=== PATIENT | female | born 1985 | race Caucasian/White ===

== ENCOUNTER 2016-10-23 15:55 | Emergency (ER) | payer OTHER ==
[~2016-10-23] VITALS: Ht 170.2 cm; Wt 138.6 kg
[~2016-10-23 15:55] MED LIST: CHOL100027 PO; CLX/20 PO; LISI-729 PO; METF-384 PO
[2016-10-23 15:58] VITALS: TEMP 36.4; Ht 170.2 cm; Wt 138.6 kg
--- NOTE | 2016-10-23 16:53 | DIAGNOSTIC IMAGING REPORT ---
CT SCAN OF THE BRAIN WITHOUT IV CONTRAST CLINICAL HISTORY: Head injury. COMPARISON STUDY: No priors. TECHNIQUE: Unenhanced axial CT scan of the brain is performed from the vertex to the skull base. Automated dose control exposure was utilized. CT DOSE: 537.48 mGy.cm FINDINGS: Brain parenchyma: The brain parenchyma is normal in appearance. There is no hemorrhage, mass effect, or evidence of acute territorial ischemia by CT criteria. Borrego-white matter is preserved. No extra-axial fluid collection is seen. Ventricles, sulci, cisterns: Normal in configuration. Intracranial vasculature: The visualized intracranial vasculature at the skull base is normal in appearance. Calvarium: There is no depressed calvarial fracture. Sinuses and mastoids: The visualized paranasal sinuses are clear. The mastoid air cells are well pneumatized. Orbits: The bony orbits are grossly intact. IMPRESSION: No acute intracranial abnormality. Electronically signed by: Gurvinder Wells M.D. 10/23/2016 4:52 PM Dictated Date/Time: 10/23/2016 4:50 PM
[2016-10-23] MEDS ORDERED: ONDA4TAB10 SL (17:15)
--- NOTE | 2016-10-23 17:15 | EMERGENCY ROOM VISIT NOTE ---
History First contact with patient: 16:02 Chief Complaint: HEADACHE Stated Complaint: HEADACHE,DIZZINESS,NAUSEA History of Present Illness The patient is a 31 year old female who presents to the Emergency Room with complaints of headache after head injury. The patient states that yesterday her toddler was on her bed and fell and the child's head hit the patient's left frontal region. The patient states that she lost consciousness for a few seconds. Since that time she has a headache which she rates it a 7 out of 10. She admits to feeling off balance with head movement. She denies any visual changes. The patient also admits to feeling slightly nauseated but no vomiting. The patient took Tylenol without any relief of the headache. The patient drove herself to the emergency room. Review of Systems 6 system review was performed and was negative unless stated otherwise in history of present illness. Past Medical/Surgical History Medical Problems: (1) Gallstone pancreatitis (2) Pancreatitis Surgical Problems: (1) S/P cholecystectomy Family History Diabetes mellitus Hypertension Social History Smoking Status: Never Smoker Alcohol Use: none Drug Use: none Marital Status: Housing Status: lives with family Current/Historical Medications Scheduled Cholecalciferol (Vitamin D 1000 Unit), 1,000 INTER.UNIT PO DAILY Citalopram (Citalopram Hydrobromide), 20 MG PO DAILY Lisinopril (Zestril), 5 MG PO DAILY Metformin Hcl (Glucophage), 1,000 MG PO BID Allergies Coded Allergies: POLLEN (Verified Allergy, Unknown, ITCHY EYES, RUNNY NOSE, 10/23/16) Physical Exam Vital Signs Date Time Temp Pulse Resp B/P Pulse Ox O2 Delivery O2 Flow Rate FiO2 10/23/16 15:58 36.4 76 20 166/102 98 Room Air Physical Exam GENERAL: 31-year-old white female appears in no acute distress. MENTAL Status: Alert and oriented 3. HEAD: Atraumatic, nontender to palpation. EYES: PERRLA. EOMs intact. EARS: Canals clear. TMs without fluid level noted. NECK: Supple, no lymphadenopathy noted. No carotid bruits noted. LUNGS: Clear auscultation without wheezes rales or rhonchi. CARDIAC: Regular rate and rhythm without murmur. Pulses is full and equal throughout. NEURO:Cranial nerves two through 12 intact. Cerebellar function intact with [id number]. Fine motor intact with alternating finger motions. Medical Decision & Procedures ER Provider Diagnostic Interpretation: CT SCAN OF THE BRAIN WITHOUT IV CONTRAST CLINICAL HISTORY: Head injury. COMPARISON STUDY: No priors. TECHNIQUE: Unenhanced axial CT scan of the brain is performed from the vertex to the skull base. Automated dose control exposure was utilized. CT DOSE: 537.48 mGy.cm FINDINGS: Brain parenchyma: The brain parenchyma is normal in appearance. There is no hemorrhage, mass effect, or evidence of acute territorial ischemia by CT criteria. Borrego-white matter is preserved. No extra-axial fluid collection is seen. Ventricles, sulci, cisterns: Normal in configuration. Intracranial vasculature: The visualized intracranial vasculature at the skull base is normal in appearance. Calvarium: There is no depressed calvarial fracture. Sinuses and mastoids: The visualized paranasal sinuses are clear. The mastoid air cells are well pneumatized. Orbits: The bony orbits are grossly intact. IMPRESSION: No acute intracranial abnormality. Electronically signed by: Gurvinder Wells M.D. 10/23/2016 4:52 PM ED Course The patient was evaluated. Urine dip was negative for . CT of the head was ordered and interpreted by the radiologist as above without any acute findings. The patient was informed of the findings and discharged home in stable condition. Medical Decision Differential includes: Acute intracranial bleed, trauma, meningitis, encephalitis, increased intracranial pressure, mass or mass effect, facial or dental infection, temporal arteritis, CVA, TIA, acute hypertensive emergency, sinusitis, carbon monoxide exposure. Impression Primary Impression: Head injury Departure Information Dispostion Home / Self-Care Condition GOOD Prescriptions Ondasetron Odt (ZOFRAN ODT) 4 Mg Tab 4 MG SL Q6H for Nausea, #6 TAB Prov: Catie Dias PA-C 10/23/16 Referrals Bibi Oropeza PA-C (PCP) Forms HOME CARE DOCUMENTATION FORM, IMPORTANT VISIT INFORMATION Patient Instructions ED Head Injury Closed, [facility] Additional Instructions Read head injury handout instructions. Any problems return to ER. Recommend Tylenol and/or ibuprofen every 6 hours as needed for headache. Take Zofran as needed for nausea. Follow-up with your family physician on Thursday or Thursday for reevaluation. If symptoms worsen in the interim, return to ER. Problem Qualifiers Primary Impression: Head injury Encounter type: initial encounter Qualified Codes: S09.90XA - Unspecified injury of head, initial encounter
[2016-10-23] MEDS ORDERED: ACETAMINOPHEN 500 MG TAB PO STA (17:23)
[2016-10-23 17:30] VITALS: BP 138/85; PULSE 89; O2SAT 95
== END 2016-10-23 17:31 | disposition home or self-care (01) ==
LOC: C.EDB 15:56 → C.EDD 17:31
DX: S09.90XA Unspecified injury of head, initial encounter (principal); W06.XXXA Fall from bed, initial encounter; K85.10 Biliary acute pancreatitis without necrosis or infection; Z90.49 Acquired absence of other specified parts of digestive tract; Z79.84 Long term (current) use of oral hypoglycemic drugs; Z79.899 Other long term (current) drug therapy; Z91.09 Other allergy status, other than to drugs and biological substances; Z83.3 Family history of diabetes mellitus; Z82.49 Family history of ischemic heart disease and other diseases of the circulatory system

== ENCOUNTER 2017-03-06 13:37 | Emergency (ER) | payer OTHER ==
[~2017-03-06] VITALS: Ht 167.6 cm; Wt 139.5 kg
[~2017-03-06 13:37] MED LIST changes: +ONDA4TAB10 SL
[2017-03-06 13:47] VITALS: TEMP 37.5; Ht 167.6 cm; Wt 139.5 kg
[2017-03-06] MEDS ORDERED: OXYCODONE HCL IR 5 MG TAB (IMMEDIATE RELEASE) PO STA (14:27)
[2017-03-06] MEDS ORDERED: NAPR-1169 PO (15:10)
[2017-03-06] MEDS ORDERED: CLX40 PO (15:10)
[2017-03-06] MEDS ORDERED: PRED10TA PO (15:10)
--- NOTE | 2017-03-06 15:18 | DIAGNOSTIC IMAGING REPORT ---
LUMBAR SPINE CT CT DOSE: 2116.22 mGy.cm HISTORY: Low back pain with R radiculitis TECHNIQUE: Multiaxial CT images of the lumbar spine were performed and reformatted in the sagittal and coronal plane without the use of contrast. COMPARISON: None. FINDINGS: No fractures. No subluxation. Paraspinal soft tissues are unremarkable. Minimal dextroscoliosis which could be positional. The sacrum is intact. This spaces are relatively preserved. Small partially calcified focal central disc protrusions at L2-L3 and L3-L4. These result in minimal central canal narrowing. No significant neural foraminal narrowing. There may also be a right central/paracentral focal disc protrusion at L5-S1. This may compress the transiting right S1 nerve root. However, this is now well-visualized by CT technique. IMPRESSION: 1. No fractures or subluxation within the lumbar spine. 2. Small partially calcified focal central disc protrusions at L2-L3 and L3-L4. 3. Possible central/right paracentral focal disc protrusion at L5-S1. However, this is not well assessed by CT technique. Follow-up nonemergent lumbar spine MRI can be used for confirmation. Electronically signed by: Lexx Lamar M.D. 03/06/2017 3:17 PM Dictated Date/Time: 03/06/2017 3:11 PM
[2017-03-06] MEDS ORDERED: OXYC1TAB3 PO (15:56)
[2017-03-06 16:04] VITALS: BP 169/100; PULSE 88; O2SAT 99
--- NOTE | 2017-03-06 22:02 | EMERGENCY ROOM VISIT NOTE ---
History First contact with patient: 14:10 Chief Complaint: BACK PAIN Stated Complaint: BACK PAIN History of Present Illness The patient is a 31 year old female who presents to the Emergency Room with complaints of upper back pain and pain radiating down the right lower extremity to her foot. The patient reports she has had this discomfort for the past 2 months. The pain started to radiate to her calf 1 week ago, and reports intermittent right foot numbness. The patient denies any foot drop with ambulation, or pronounced right lower extremity weakness. She also denies any saddle anesthesias. The patient reports that her family doctor francisco evaluated her, and got x-rays of her back. With her persistent and worsening symptoms, she was seen at [facility] in this morning, and given a prescription for a prednisone taper. She was instructed to follow-up with her family doctor for further management. The patient reports that she is here because of the persistent pain. The patient reports that her family doctor wanted to get an MRI of her back, and her primary insurance approved it; however, her secondary insurance refused to cover the cost of the MRI. The patient reports that she has undergone to physical therapy sessions this week. She currently rates her discomfort a 3 out of 10. Review of Systems 10 system review was performed and was negative except for pertinent positives and negatives as indicated in history of present illness Past Medical/Surgical History Medical Problems: (1) Gallstone pancreatitis (2) Pancreatitis Surgical Problems: (1) S/P cholecystectomy Family History Diabetes mellitus Hypertension Social History Smoking Status: Current Every Day Smoker Alcohol Use: none Drug Use: none Marital Status: Housing Status: lives with family Current/Historical Medications Scheduled Cholecalciferol (Vitamin D 1000 Unit), 1,000 INTER.UNIT PO DAILY Citalopram (Citalopram Hydrobromide), 40 MG PO DAILY Lisinopril (Zestril), 5 MG PO DAILY Metformin Hcl (Glucophage), 1,000 MG PO BID Ondasetron Odt (Zofran Odt), 4 MG SL Q6H Prednisone (Prednisone), 0 PO UD Scheduled PRN Naproxen (Naprosyn), 500 MG PO BID PRN for Pain Oxycodone Ir (Roxicodone Ir), 1-2 TAB PO Q4H PRN for Pain Allergies Coded Allergies: POLLEN (Verified Allergy, Unknown, ITCHY EYES, RUNNY NOSE, 10/23/16) Uncoded Allergies: UNKNOWN SLEEPING MED (Allergy, Unknown, UNKNOWN, 03/06/17) Physical Exam Vital Signs Date Time Temp Pulse Resp B/P (MAP) Pulse Ox O2 Delivery O2 Flow Rate FiO2 03/06/17 16:04 88 20 169/100 99 Room Air 03/06/17 13:47 37.5 99 20 125/79 96 Room Air Physical Exam CONSTITUTIONAL: Healthy and well nourished. Alert and oriented X 3 with positive affect. Patient appears in minimal discomfort. HEENT: Normocephalic, atraumatic. Pupils equal, round and reactive. Ears and nares are clear. No scleral icterus or conjunctival injection/pallor. NECK: Full active range of motion without discomfort. No nuchal rigidity. Negative Kernig's, negative Brudzinski sign. RESPIRATORY: Clear to auscultation bilaterally with no wheezing, crackles, rhonchi or stridor. CARDIOVASCULAR: Regular rate and rhythm with no murmurs, rubs or gallops. GASTROINTESTINAL: Bowel sounds present in all quadrants. Abdomen is soft and nontender to palpation. MUSCULOSKELETAL: Examination shows tenderness to palpation through the right lower lumbar paraspinous muscle and SI joints. No palpable rigidity or spasm noted. Negative logroll. Positive straight leg raise. Ankle plantar/ dorsiflexion strength is 5 out of 5 and symmetric bilaterally. The patient is able straight leg raise bilaterally. Pedal pulses are intact. INTEGUMENTARY: No rash or other significant dermatologic conditions noted. NEUROLOGIC: Lower extremities are sensory intact with deep tendon reflexes 2+ and symmetric bilaterally. Medical Decision & Procedures ER Provider Diagnostic Interpretation: Noncontrast CT of the lumbar spine shows the following: LUMBAR SPINE CT CT DOSE: 2116.22 mGy.cm HISTORY: Low back pain with R radiculitis TECHNIQUE: Multiaxial CT images of the lumbar spine were performed and reformatted in the sagittal and coronal plane without the use of contrast. COMPARISON: None. FINDINGS: No fractures. No subluxation. Paraspinal soft tissues are unremarkable. Minimal dextroscoliosis which could be positional. The sacrum is intact. This spaces are relatively preserved. Small partially calcified focal central disc protrusions at L2-L3 and L3-L4. These result in minimal central canal narrowing. No significant neural foraminal narrowing. There may also be a right central/paracentral focal disc protrusion at L5-S1. This may compress the transiting right S1 nerve root. However, this is now well-visualized by CT technique. IMPRESSION: 1. No fractures or subluxation within the lumbar spine. 2. Small partially calcified focal central disc protrusions at L2-L3 and L3-L4. 3. Possible central/right paracentral focal disc protrusion at L5-S1. However, this is not well assessed by CT technique. Follow-up nonemergent lumbar spine MRI can be used for confirmation. Medications Administered Medications (Trade) Dose Ordered Sig/Jone Route Start Time Stop Time Status Last Admin Dose Admin Oxycodone HCl (Roxicodone Immediate Rel Tab) 5 mg NOW STAT PO 03/06/17 14:27 03/06/17 14:29 DC 03/06/17 14:49 5 MG ED Course Patient history and physical exam were performed. Nurse's notes were reviewed. Vital signs were reviewed and normal. Clinical exam does not show any sign is consistent with cauda equina syndrome or other emergent compressive neuropathy. I did explain to the patient that an MRI is not warranted at this time, and if an MRI was performed, is likely that her insurance would not cover it. Because she has had a recent x-ray, I did suggest performing a noncontrast CT of the lumbar spine for further evaluation. The patient was in agreement. She refused parenteral pain management. She was administered OxyIR 5 mg for pain. Noncontrast CT of the lumbar spine did show a possible central/right paracentral focal disc protrusion at L5-S1. However, the radiologist recommended an MRI for further characterization of this finding. At this point, the patient was encouraged to continue with her current treatment as recommended by her PCP. She was instructed to follow-up with her PCP to discuss her CT findings. She was provided a prescription for OxyIR 5 mg as needed for breakthrough pain. She was encouraged to continue with the corticosteroids as prescribed by [facility]. She was instructed to seek further emergent reevaluation for any symptoms consistent with cauda equina syndrome, which were thoroughly discussed with the patient. The patient was happy with plan of care, voiced understanding of all discharge instructions, and rated her pain a 2 out of 10 at the time of discharge. Medical Decision See previous section. As indicated, she does not have any clinical exam findings consistent with conus medullaris or cauda equina syndrome. Based on history, I also do not suspect spinal abscess or hematoma. The patient is afebrile. Her abdominal exam is benign, therefore I do not suspect intra- abdominal etiology. Her pain is worsened with movement, making musculoskeletal etiology most likely. The question is whether the patient has any significant central canal stenosis or other disc injury that is causing her symptoms. Impression Primary Impression: Right lumbar radiculitis Departure Information Prescriptions Oxycodone Ir (Roxicodone Ir) 5 Mg Tab 1-2 TAB PO Q4H Y for Pain, #15 TAB For Initial Treatment Prov: Vic Guevara PA 03/06/17 Referrals Bibi Oropeza PA-C (PCP) Patient Instructions [facility]
== END 2017-03-06 16:06 | disposition home or self-care (01) ==
LOC: EDBD 13:37 → C.EDB 13:38
DX: M54.16 Radiculopathy, lumbar region (principal); F17.200 Nicotine dependence, unspecified, uncomplicated; Z90.49 Acquired absence of other specified parts of digestive tract; Z83.3 Family history of diabetes mellitus; Z82.49 Family history of ischemic heart disease and other diseases of the circulatory system